=== PATIENT | female | born 1950 | race Caucasian/White ===

== ENCOUNTER 2017-07-16 07:45 | Day surgery (SDC) | payer MEDICARE, BC ==
[~2017-07-16] VITALS: Ht 160 cm; Wt 59.7 kg
[2017-07-16] MEDS ORDERED: LIDOcaine 1% (10mg/ml) 2ml vial SQ ONE (08:00)
[2017-07-16 08:12] VITALS: BP 124/70
[2017-07-16] MEDS ORDERED: normal saline 1000ml 1,000 ML IV PRN (08:15)
[2017-07-16] MEDS ORDERED: albumin (human) 25% 100 ML IV solution IV PRN (08:15)
[2017-07-16] MEDS ORDERED: MAGN500C16 PO (10:01)
[2017-07-16] MEDS ORDERED: METF500T4 PO (10:01)
[2017-07-16] MEDS ORDERED: iron IV (10:01)
[2017-07-16] MEDS ORDERED: magnesium IV (10:01)
[2017-07-16] MEDS ORDERED: chemo IV (10:01)
== END 2017-07-16 08:38 | disposition home or self-care (01) ==
LOC: SSTAY O 07:45
PROVIDERS: ATTEND Radiology Vascular & Interventional Radiology
DX: R14.0 Abdominal distension (gaseous) (principal); I10 Essential (primary) hypertension; K21.9 Gastro-esophageal reflux disease without esophagitis; E78.5 Hyperlipidemia, unspecified; Z85.07 Personal history of malignant neoplasm of pancreas; Z80.3 Family history of malignant neoplasm of breast; Z79.84 Long term (current) use of oral hypoglycemic drugs; Z98.890 Other specified postprocedural states; Z79.899 Other long term (current) drug therapy
CPT/HCPCS: 76705; J7030; A6257; J3490